=== PATIENT | female | born 1960 | race Caucasian/White ===

== ENCOUNTER 2017-04-27 14:30 | Emergency (ER) | payer MEDICAID ==
[~2017-04-27] VITALS: Ht 165.1 cm; Wt 72.6 kg
[2017-04-27 16:05] LABS: ANION GAP 5 mmol/L (5-15); BLOOD UREA NITROGEN 17 mg/dL (7-18); CARBON DIOXIDE 30 MMOL/L (21-32); CHLORIDE 102 MMOL/L (98-107); CREATININE 0.9 MG/DL (0.55-1.30); POTASSIUM 3.8 MMOL/L (3.5-5.1); SODIUM 137 MMOL/L (136-145)
[2017-04-27 16:07] LABS: BASOPHILS % (AUTO) 1.3 % (0.0-2.0); EOSINOPHILS % (AUTO) 4.8 % (0.0-3.0); HEMOGLOBIN 12.9 G/DL (12.0-16.0); LYMPHOCYTES % (AUTO) 46.3 % (20.0-45.0); MEAN CORPUSCULAR VOLUME 93 FL (80-99); MONOCYTES % (AUTO) 11.1 % (1.0-10.0); NEUTROPHILS % (AUTO) 36.6 % (45.0-75.0); PLATELET COUNT 213 K/UL (150-450); RED BLOOD COUNT 4.06 M/UL (4.20-5.40); WHITE BLOOD COUNT 4.7 K/UL (4.8-10.8)
[2017-04-27 16:18] LABS: ALANINE AMINOTRANSFERASE 29 U/L (12-78); ALBUMIN 3.6 G/DL (3.4-5.0); ALKALINE PHOSPHATASE 69 U/L (46-116); ASPARTATE AMINO TRANSFERASE 22 U/L (15-37); BILIRUBIN,TOTAL 0.2 MG/DL (0.2-1.0); CKMB 1.4 NG/ML (0.0-3.6); CREATINE KINASE 113 U/L (26-308)
--- NOTE | 2017-04-27 16:44 | Diagnostic Imaging Report ---
Indication: Dyspnea Comparison: None A single view chest radiograph was obtained. Findings: Lungs are clear. Heart size is normal. There are old rib fractures on the left. Bones appear slightly osteopenic. There are surgical clips in the upper abdomen. IMPRESSION: No acute disease
[2017-04-27] MEDS ORDERED: PRILOSEC10 M1 ORAL (17:35)
[2017-04-27 20:09] VITALS: BP 138/87
--- NOTE | 2017-04-27 22:30 | Emergency Room Report ---
History of Present Illness General Chief Complaint: Chest Pain Source: Patient Present Illness HPI Patient is a 56-year-old female presented after increased left-sided chest pain. She been present for several months. Patient reportedly had prior history of abnormal aortic imaging. She cannot state with the defect is. Patient denies any fever. She reported having sharp pain worse with movement. She denies recent trauma. Patient had intermittent for several months she denied vomiting or diarrhea. 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 Allergies: Coded Allergies: No Known Allergies (Unverified , 04/30/17) Patient History Past Medical History: see triage record Reviewed Nursing Documentation: PMH: Agreed, PSxH: Agreed Nursing Documentation-PMH Hx Hypertension: Yes Hx Cerebrovascular Accident: Yes Review of Systems All Other Systems: negative except mentioned in HPI Physical Exam Vital Signs Date Time Temp Pulse Resp B/P (MAP) Pulse Ox O2 Delivery O2 Flow Rate FiO2 04/27/17 14:30 98.0 74 8 145/86 99 Room Air 98.1 04/27/17 15:31 100 Sp02 EP Interpretation: reviewed, normal General Appearance: normal inspection, well appearing, no apparent distress, alert, GCS 15 Head: atraumatic ENT: normal ENT inspection, hearing grossly normal, normal voice Neck: normal inspection, full range of motion, supple, no bony tend Respiratory: normal inspection, lungs clear, normal breath sounds, no respiratory distress, no retraction, no wheezing Cardiovascular #1: regular rate, rhythm, no edema Gastrointestinal: normal inspection, normal bowel sounds, non tender, soft, no guarding, no hernia Genitourinary: no CVA tenderness Musculoskeletal: normal inspection, back normal, normal range of motion Neurologic: normal inspection, alert, oriented x3, responsive, client success specialist III-XII nml as tested, speech normal Psychiatric: normal inspection, judgement/insight normal, mood/affect normal Skin: normal inspection, normal color, no rash Medical Decision Making Diagnostic Impression: Primary Impression: Atypical chest pain ER Course Patient presented for chest pain. Differential diagnosis included but was not limited to acute coronary syndrome, pulmonary embolism, pneumonia, aortic dissection, shingles, pneumothorax, aortic dissection, esophageal rupture, pericarditis. Because of complexity of patient's case laboratory testing and imaging studies were ordered. A CT of the chest read by radiologist no evidence of aortic dissection or pulmonary embolism. The patient appears to have a benign exam. Patient's troponin was negative. The patient was also noted to have old rib fractures to the left side near her pain is located.The patient was initially noted to have some thyroid abnormalities The patient was informed needed further imaging and testing. The patient is advised to follow up with primary care doctor in 1-2 days for cardiology referral. Patient is advised to return if any worsening condition or if any changes in status that are concerning. This report is dictated with FileThis rating officer software which may occasionally lead to discrepancies related to use of this software. EKG Diagnostic Results Rate: normal - 71 Rhythm: NSR ST Segments: no acute changes Last Vital Signs Date Time Temp Pulse Resp B/P (MAP) Pulse Ox O2 Delivery O2 Flow Rate FiO2 04/27/17 20:09 98.0 87 18 138/87 98 Room Air 98.0 04/27/17 15:31 100 Status: improved Disposition: HOME, SELF-CARE Condition: Stable Scripts Omeprazole Magnesium (PRILOSEC) 10 Mg Suspdr.pkt 10 MG ORAL DAILY, #30 PACKET Prov: Daniel Ayala 04/27/17 Referrals: NOT CHOSEN IPA/,REFERRING (PCP) CHARITO BERNAL Patient Instructions: Nonspecific Chest Pain Daniel Ayala Apr 27, 2017 22:30
--- NOTE | 2017-04-28 11:46 | Diagnostic Imaging Report ---
Indication: Chest pain Technique: Continuous helical transaxial imaging of the chest was obtained from the thoracic inlet to the upper abdomen during rapid intravenous contrast administration. Arterial phase of enhancement obtained. Coronal 2-D reformats were also obtained and maximum intensity projection images in multiple planes. Study obtained in a Siemens sensation [address] Automatic Exposure Control was utilized. Total Dose length Product (DLP): 904.[address] Dose Index Volume (CTDIvol): 31.37 mGy Comparison: None Findings: The pulmonary artery is well opacified and shows no filling defects. There is no adenopathy, pleural or pericardial effusions are identified. There is no aortic dissection or aneurysm identified within the chest. The lungs are clear. Visualized part of the upper abdomen shows size suture line in the stomach compatible with gastric bypass. Some narrowing of intervertebral discs and vacuum phenomena noted with endplate spurs. Impression: Negative CTA of the chest Gastric bypass Mild degenerative changes of the spine The CT scanner at [facility] is accredited by the [employer] and the scans are performed using dose optimization techniques as appropriate to a performed exam including Automatic Exposure control.
--- NOTE | 2017-04-28 17:02 | Cardiology Report ---
APPROVED REPORT EKG Measurement Heart [id number] Normal sinus rhythm Possible Left atrial enlargement Left ventricular hypertrophy with QRS widening Abnormal ECG
== END 2017-04-27 17:55 | disposition home or self-care (01) ==
LOC: EMR 14:50
DX: R07.89 Other chest pain (principal); I10 Essential (primary) hypertension; Z86.73 Personal history of transient ischemic attack (TIA), and cerebral infarction without residual deficits
CPT/HCPCS: 36415; 71045; 71275; 80053; 80307; 82550; 82553; 83880; 84484; 85025; 85379; 93005; 99283; Q9967

== ENCOUNTER 2018-03-27 17:34 | Emergency (ER) | payer MEDICAID ==
[~2018-03-27] VITALS: Ht 165.1 cm; Wt 79.4 kg
[~2018-03-27 17:34] MED LIST: PRILOSEC10 M1 ORAL
[2018-03-27 17:45] VITALS: BP 134/86
--- NOTE | 2018-03-27 17:45 | NUR ---
ED Nurse Note: Pt AAO x4 present at ER c/o Lt 4th toe pain 7/10 after she bump into a big object. VSS, calm and cooperative with initial assessment.
--- NOTE | 2018-03-27 18:20 | Emergency Room Report ---
History of Present Illness General Chief Complaint: Pain Source: Patient Present Illness HPI 67-year-old female presents to the emergency department complaining of 7 out of 10 in severity localized pain to the fourth toe of her left foot 1 week. Patient reports that she hit her toe on the corner of a heavy piece of furniture. Patient states that she rene taped her toe thinking it would get better however her symptoms have not improved. Patient takes that she has taken Tylenol once as well as Motrin once. She denies previous injury to this extremity reports some bruising and swelling. Allergies: Coded Allergies: No Known Allergies (Unverified , 04/30/17) Patient History Past Medical History: see triage record Past Surgical History: none Pertinent Family History: none Last Menstrual Period: none : 1 Para: 1 Reviewed Nursing Documentation: PMH: Agreed; PSxH: Agreed Nursing Documentation-PMH Hx Cardiac Problems: No - CVA in 2011 Hx Hypertension: Yes Hx Cancer: No Hx Gastrointestinal Problems: Yes Hx Neurological Problems: No Hx Cerebrovascular Accident: Yes Review of Systems All Other Systems: negative except mentioned in HPI Physical Exam Vital Signs Date Time Temp Pulse Resp B/P (MAP) Pulse Ox O2 Delivery O2 Flow Rate FiO2 03/27/18 17:55 98.4 81 15 133/83 96 Room Air Sp02 EP Interpretation: reviewed, normal General Appearance: no apparent distress, alert, GCS 15, non-toxic Head: normocephalic, atraumatic Eyes: bilateral eye normal inspection, bilateral eye PERRL ENT: hearing grossly normal, normal voice Neck: full range of motion Respiratory: lungs clear, normal breath sounds, speaking full sentences Cardiovascular #1: regular rate, rhythm, normal capillary refill Musculoskeletal: back normal, gait/station normal, normal range of motion, tender - TTP to the left 4th toe, swelling, erythema/bruising. Neurologic: alert, oriented x3, responsive, motor strength/tone normal, sensory intact, speech normal, grossly normal Psychiatric: judgement/insight normal Skin: normal color, no rash, warm/dry, well hydrated Medical Decision Making PA Attestation Dr. fuentes is my supervising Physician whom patient management has been discussed with. Diagnostic Impression: Primary Impression: Phalanx fracture, foot Qualified Codes: S92.912A - Unspecified fracture of left toe(s), initial encounter for closed fracture ER Course 67-year-old female presents to the emergency department complaining of 7 out of 10 in severity localized pain to the fourth toe of her left foot 1 week. Patient reports that she hit her toe on the corner of a heavy piece of furniture. Patient states that she rene taped her toe thinking it would get better however her symptoms have not improved. Patient takes that she has taken Tylenol once as well as Motrin once. She denies previous injury to this extremity reports some bruising and swelling. Ddx considered but are not limited to Fracture, dislocation, contusion, Sprain/ Strain/Spasm. Vital signs: are WNL, pt. is afebrile H&PE are most consistent with musculoskeletal injury will perform imaging to r/ o fractures/dislocations. ORDERS: - X-ray Left Foot 3 views - POSITIVE FOR PROXIMAL 4Th PHALANX FRACTURE, no - Dislocation, or significant soft tissue injury, per preliminary read in ED, and signed by SANA Grier, my supervising physician has reviewed, and agrees with my interpretation. ED INTERVENTIONS: - Motrin PO -Rene tape applied by technical intern. Pt. remains neurovascularly intact. -patient is placed into a cast shoe and also remains neurovascularly intact as well. DISCHARGE: At this time pt. is stable for d/c to home. Will provide printed patient care instructions, and any necessary prescriptions. Care plan and follow up instructions have been discussed with the patient prior to discharge. Other X-Ray Diagnostic Results Other X-Ray Diagnostic Results : X-Ray ordered: Left Foot # of Views/Limited Vs Complete: 3 View Indication: Pain EP Interpretation: Yes SANA Xray: Interpretation reviewed, by supervising MD, and agrees with findings. Interpretation: no dislocation, no soft tissue swelling, other - proximal phalanx fx of the 4th toe- non-displaced Impression: Other - abnormal Electronically Signed by: Brigida Grier PA-C Last Vital Signs Date Time Temp Pulse Resp B/P (MAP) Pulse Ox O2 Delivery O2 Flow Rate FiO2 03/27/18 17:55 98.4 81 15 133/83 96 Room Air Disposition: HOME, SELF-CARE Condition: Stable Scripts Ibuprofen* (MOTRIN*) 600 Mg Tablet 600 MG ORAL THREE TIMES A DAY, #30 TAB 0 Refills Prov: Brigida Grier 03/27/18 Hydrocodone Bit/Acetaminophen 5-325* (NORCO 5-325*) 1 Each Tablet 1 TAB ORAL Q6H PRN for For Pain, #10 TAB 0 Refills Prov: Brigida Grier 03/27/18 Patient Instructions: Toe Fracture Additional Instructions: Take medications as directed. Follow up with an FLORAL DESIGNER SALESPERSON in 3-5 days, even if your symptoms have resolved. If symptoms persist MRI may be required at the discretion of your PCP or Ortho Specialist. --Please review list of primary care clinics, if you do not already have a primary care provider who can give you an Orthopedic Referral. Return sooner to ED if new symptoms occur, or current symptoms become worse. Do not drink alcohol, drive, or operate heavy machinery while taking [place] as this may cause drowsiness. - Please note that this Emergency Department Report was dictated using Machine Talkerprofessional nurse technology software, occasionally this can lead to erroneous entry secondary to interpretation by the dictation equipment. Brigida Grier Mar 27, 2018 18:20
--- NOTE | 2018-03-27 18:45 | Diagnostic Imaging Report ---
EXAM: XR Left Foot Complete, 3 or More Views CLINICAL HISTORY: PAIN TECHNIQUE: Frontal, lateral and oblique views of the left foot. COMPARISON: No relevant prior studies available. FINDINGS: Bones/joints: There is a mildly displaced fracture of the left fourth proximal phalanx. No clear articular extension. No dislocation. Ankle spurring. Soft tissues: Swelling about the fracture. No radiopaque foreign body. IMPRESSION: Left fourth proximal phalanx fracture
[2018-03-27] MEDS ORDERED: IBUPROFEN600 MG ORAL (19:14)
[2018-03-27] MEDS ORDERED: NORCO 5-325 TA1 EACH ORAL (19:14)
--- NOTE | 2018-03-27 19:14 | NUR ---
HAND-OFF: Report given to LAZARA Bhagat. No s/s of distress.
[2018-03-27 19:25] VITALS: BP 121/80
--- NOTE | 2018-03-27 19:26 | NUR ---
ED Nurse Note: Pt was cleared to be discharged by ERPA. Pt verbalized improved pain to 2/10. VSS. Pt received prescription and discharge instruction with fully understanding. Pt ambulated to be discharged. ID band removed.
== END 2018-03-27 19:20 | disposition home or self-care (01) ==
LOC: EMR 18:13
DX: S92.512A Displaced fracture of proximal phalanx of left lesser toe(s), initial encounter for closed fracture (principal); W22.03XA Walked into furniture, initial encounter; Y92.89 Other specified places as the place of occurrence of the external cause; I10 Essential (primary) hypertension; Z86.73 Personal history of transient ischemic attack (TIA), and cerebral infarction without residual deficits
CPT/HCPCS: 99283